=== PATIENT | female | born 1980 | race Caucasian/White ===

== ENCOUNTER 2020-11-06 08:00 | Outpatient (CLI) | payer OTHER ==
[2020-11-06] MEDS ORDERED: OMEG-76 PO (11:32)
[2020-11-06] MEDS ORDERED: MULT-658 PO (11:32)
[2020-11-06] MEDS ORDERED: CHOL10003 PO (11:32)
== END 2020-11-06 23:59 | disposition home or self-care (01) ==
LOC: STAR 08:00
PROVIDERS: ATTEND Obstetrics & Gynecology
DX: U07.1 COVID-19 (principal); Z01.812 Encounter for preprocedural laboratory examination
CPT/HCPCS: 36415; 80053; 81001; 84702; 85025; 87086; U0003

== ENCOUNTER 2020-12-07 10:56 | Day surgery (SDC) | payer OTHER ==
[~2020-12-07] VITALS: Ht 165.1 cm; Wt 64.0 kg
[~2020-12-07 10:56] MED LIST: CHOL10003 PO; MULT-658 PO; OMEG-76 PO
[2020-12-07] MEDS ORDERED: LACTATED RINGERS 1,000 ML IV SCH (11:30)
[2020-12-07 11:36] VITALS: BP 117/79
[2020-12-07 11:40] LABS: HCG UR SG 1.014 (1.003-1.030)
[2020-12-07] MEDS ORDERED: GABAPENTIN 300 MG CAPSULE PO ONE (12:00)
[2020-12-07] MEDS ORDERED: OxyconTIN ER 20 MG TAB.ER PO ONE (12:00)
[2020-12-07] MEDS ORDERED: ACETAMINOPHEN 500 MG TABLET PO ONE ×2 (12:00→13:00)
[2020-12-07] MEDS ORDERED: CHLORHEXIDINE 15 ML UDC MM ONE (12:00)
[2020-12-07] MEDS ORDERED: EPINEPHRINE 1 MG/ML, 1ML ONE (12:44)
[2020-12-07] MEDS ORDERED: BUPIVACAINE/PF 0.25% ONE (12:44)
[2020-12-07] MEDS ORDERED: FLUORESCEIN SODIUM 500 MG/5 ML ONE (12:44)
[2020-12-07] MEDS ORDERED: FENTANYL PF 250 MCG/5ML ONE ×2 (12:54→13:59)
[2020-12-07] MEDS ORDERED: MIDAZOLAM 1 MG/ML, 2ML ONE (12:54)
[2020-12-07] MEDS ORDERED: GENTAMICIN 80 MG/2 ML ONE (12:59)
[2020-12-07] MEDS ORDERED: CLINDAMYCIN 150 MG/ML, 6ML ONE (12:59)
[2020-12-07] MEDS ORDERED: OXYcodone IR 5MG TABLET PO ONE (13:00)
[2020-12-07] MEDS ORDERED: SCOPOLAMINE 1MG PATCH TD SCH (13:00)
[2020-12-07] MEDS ORDERED: ROCURONIUM 10 MG/ML,10ML ONE (13:05)
[2020-12-07] MEDS ORDERED: ONDANSETRON 2MG/ML, 2ML ONE (13:05)
[2020-12-07] MEDS ORDERED: METOCLOPRAMIDE 5 MG/ML, 2ML ONE (13:05)
[2020-12-07] MEDS ORDERED: DEXAMETHASONE 4 MG/ML, 1ML ONE (13:05)
[2020-12-07] MEDS ORDERED: SUCCINYLCHOLINE 20 MG/ML, 10ML ONE (13:05)
[2020-12-07] MEDS ORDERED: NEOSTIGMINE 1 MG/ML, 10ML ONE (13:05)
[2020-12-07] MEDS ORDERED: GLYCOPYRROLATE 0.2MG/1ML, 5ML ONE (13:05)
[2020-12-07] MEDS ORDERED: PROPOFOL 50 ML ONE ×3 (13:19→14:28)
[2020-12-07] MEDS ORDERED: HYDROmorphone 1 MG/ML, 1ML INJ IVPush PRN (14:00)
[2020-12-07] MEDS ORDERED: MEPERIDINE/PF 25MG/0.5ML IVPush PRN (14:00)
[2020-12-07] MEDS ORDERED: LABETALOL 5MG/ML, 20ML IV PRN (14:00)
[2020-12-07] MEDS ORDERED: EPHEDRINE 50 MG/ML, 1ML IM PRN (14:00)
[2020-12-07] MEDS ORDERED: ACETAMINOPHEN 325 MG TABLET PO PRN (14:00)
[2020-12-07] MEDS ORDERED: OXYcodone 5 MG/5 ML ORAL.SOL UDC PO PRN (14:00)
[2020-12-07] MEDS ORDERED: PROMETHAZINE 25 MG/ML, 1ML IVPush PRN (14:00)
[2020-12-07] MEDS ORDERED: METHOCARBAMOL 1,000 MG in DEXTROSE 5% 100 ML IV PRN (14:00)
[2020-12-07] MEDS ORDERED: ONDANSETRON 2MG/ML, 2ML IVPush PRN (14:00)
[2020-12-07] MEDS ORDERED: LORazepam 2 MG/ML, 1ML IVPush PRN (14:00)
[2020-12-07] MEDS ORDERED: EPHEDRINE 50 MG/ML, 1ML IVPush PRN (14:00)
[2020-12-07] MEDS ORDERED: hydrALAzine 20 MG/ML, 1ML IV PRN (14:00)
[2020-12-07] MEDS ORDERED: HYDROmorphone 1 MG/ML, 1ML INJ ONE (15:54)
[2020-12-07] MEDS ORDERED: FENTANYL PF 100 MCG/2ML ONE (15:54)
[2020-12-07] MEDS: FENTANYL PF 100 MCG/2ML IV PRN ×2 (15:55→16:05)
== END 2020-12-07 17:20 | disposition home or self-care (01) ==
LOC: OUT 10:56
PROVIDERS: ATTEND Obstetrics & Gynecology
DX: N92.0 Excessive and frequent menstruation with regular cycle (principal); N94.6 Dysmenorrhea, unspecified; N80.0 Endometriosis of uterus; G43.909 Migraine, unspecified, not intractable, without status migrainosus; Z88.0 Allergy status to penicillin; Z98.890 Other specified postprocedural states; Z72.89 Other problems related to lifestyle; Z79.899 Other long term (current) drug therapy
CPT/HCPCS: 36415; 58550; 81025; 86850; 86900; 88307; J0171; J0330; J1100; J1580; J2250; J2405; J2704; J2710; J2765; J3010; J7120

== ENCOUNTER → 2021-01-04 | Outpatient (CLI) | payer OTHER ==
[~2021-01-04] MED LIST changes: +OMNIPAQUE 350 MG/ML, 100ML BOTTLE ONE
== END | disposition home or self-care (01) ==
LOC: CFH 12:35
PROVIDERS: ATTEND Obstetrics & Gynecology
DX: K76.9 Liver disease, unspecified (principal); R10.2 Pelvic and perineal pain; Z90.710 Acquired absence of both cervix and uterus
CPT/HCPCS: 74177; Q9967